=== PATIENT | female | born 1980 | race African-American/Black ===

== ENCOUNTER 2020-02-01 13:05 | Emergency (ER) | payer OTHER ==
--- NOTE | 2020-02-01 13:10 | PDOC ---
Rapid Medical Evaluation Time Seen by Provider: 02/01/20 13:09 Medical Evaluation: 02/01/20 13:09 I have performed a brief in-person evaluation of this patient. The patient presents with a chief complaint of:dysuria, no flank pain, n/v/f/c. Also c/o "canker sore" to mouth x 3 days Pertinent physical exam findings:stable I have ordered the following:ua/cx/preg The patient will proceed to the ED for further evaluation Discharge Disposition - Diagnosis Dysuria - Referrals - Patient Instructions - Post Discharge Activity
[2020-02-01 13:12] VITALS: BP 150/91; PULSE 91; TEMP 98.7; BMI 26.1
--- NOTE | 2020-02-01 13:45 | PDOC ---
History of Present Illness - General Chief Complaint: Urinary Problem Stated Complaint: URINARY PROBLEM/MOUTH SORES Time Seen by Provider: 02/01/20 13:09 History Source: Patient Exam Limitations: No Limitations - History of Present Illness Initial Comments: 02/01/20 13:40 33 year old female pmhx of DM and HTN presenting with 3 days of dysuria and foul smelling urine. Pt states that over the last 3 months she has been having frequent UTIs treated with Bactrim. Pt states that her symptoms usually occur after intercourse. Pt denies inc frequency, hematuria, vaginal bleeding, discharge, fever, chills, flank pain, abdominal pain, chest pain SOB. Past History - Medical History Allergies/Adverse Reactions: Allergies Allergy/AdvReac Type Severity Reaction Status Date / Time ibuprofen Allergy Verified 02/01/20 13:13 COPD: No Diabetes: Yes (NIDDM) - Surgical History Gastric Stapling: Yes (sleeve) - Psycho-Social/Smoking History Smoking History: Never smoked - Substance Abuse Hx (Audit-C & DAST Scrn) How often the patient has a drink containing alcohol: Never Score: In Men: 4 or > Positive; In Women: 3 or > Positive: 0 Screen Result (Pos requires Nsg. Audit-10AR): Negative Review of Systems - Review of Systems Constitutional: No: Chills, Diaphoresis, Fever HEENTM: No: Blurred Vision Respiratory: No: Shortness of Breath Cardiac (ROS): No: Chest Pain ABD/GI: No: Abdominal Distended, Diarrhea, Nausea, Vomiting : Yes: Burning, Dysuria. No: Discharge, Frequency, Flank Pain, Hematuria Musculoskeletal: No: Back Pain Integumentary: No: Bruising *Physical Exam - Vital Signs Last Vital Signs Temp Pulse Resp BP Pulse Ox 98.7 F 91 H 18 150/91 100 02/01/20 13:02/01/20 13:02/01/20 13:02/01/20 13:02/01/20 13:09 - Physical Exam 02/01/20 13:42 Gen: AAOx 3, no acute distress, comfortable, no signs of respiratory distress HENT: atraumatic, normocephalic with no laceration or contusion. Nasal mucosa w ithout erythema. Oropharynx without erythema or exudates. Mucous membranes moist. EYES: PERRL, EOM intact, conjunctiva pink NECK: supple; trachea midline; no JVD, no lymphadenopathy, or thyromegaly CV: RRR no murmurs, gallops, or rubs. CHEST: CTA b/l no wheezing, rales or rhonchi ABD: +BS/ND. no TTP; soft, no rebound, no guarding EXTREMITY: no cyanosis or erythema. 2+ dorsalis pedis, posterior tibial, and radial pulse. No pedal edema; no calf swelling or tenderness SKIN: no rash, warm and dry, no diaphoresis HEME: no purpura or ecchymosis NEURO: normal speech, CN II-XII intact, sensation intact, normal gait, no cerebellar deficits MS: 5/5 strength in all extremities, FROM intact in all extremities. Medical Decision Making - Medical Decision Making 02/01/20 13:42 33 year old female DM HTN presenting with dysuria and frequent UTIs. VSS UA, UC Upreg, GC testing Will reassess based on results. UA: Negative HCG negative Pt to be called with results of GC testing. Pt is safe and stable for discharge, explained to pt need to follow up with [facility] and Urology. Supportive care instructions explained and given to pt. Reasons to return emergently to ER explained and given. Importance of follow up with PMD and other specialists as indicated stressed to pt. Pt verbalized understanding of instructions. Pt to follow up with PMD in 2 days. 02/01/20 14:30 Discharge - Discharge Information Problems reviewed: Yes Clinical Impression/Diagnosis: Dysuria Condition: Stable Disposition: HOME - Admission No - Follow up/Referral Referrals: ON STAFF,NOT [Primary Care Provider] - Christian Walton MD [Non Staff, Medical] - - Patient Discharge Instructions Patient Printed Discharge Instructions: DI for Dysuria -- Adult - Post Discharge Activity
[2020-02-01 13:58] LABS: PH,URINE 7.5 (5.0-8.0); URINE APPEARANCE CLEAR; URINE BILIRUBIN NEGATIVE (NEGATIVE); URINE COLOR YELLOW; URINE GLUCOSE (UA) NEGATIVE (NEGATIVE); URINE KETONE NEGATIVE (NEGATIVE); URINE LEUK ESTERASE NEGATIVE (NEGATIVE); URINE NITRITE NEGATIVE (NEGATIVE); URINE PROTEIN NEGATIVE (NEGATIVE); URINE UROBILINOGEN 0.2 mg/dL (0.2-1.0)
[2020-02-01 14:01] LABS: HCG,QUALITATIVE URINE Negative
== END 2020-02-01 14:36 | disposition home or self-care (01) ==
LOC: JERFT 13:05
DX: R30.0 Dysuria (principal)
CPT/HCPCS: 36415; 81003; 84703; 87086; 87186; 87491; 87591; 99283-25